=== PATIENT | male | born 1935 | race Caucasian/White ===

== ENCOUNTER → 2017-01-16 | Outpatient (CLI) | payer MEDICARE, OTHER ==
[~2017-01-16] MED LIST: AMLO5TAB2 PO; ATEN50TA41 PO; FERR325T20 PO; LISI40TA PO; OMEP-110 PO
== END | disposition home or self-care (01) ==
LOC: ROC 10:54
PROVIDERS: ATTEND Radiology Radiation Oncology
DX: C44.519 Basal cell carcinoma of skin of other part of trunk (principal); I10 Essential (primary) hypertension; N17.9 Acute kidney failure, unspecified; Z85.89 Personal history of malignant neoplasm of other organs and systems
CPT/HCPCS: 99212; G0463

== ENCOUNTER → 2017-07-14 | Outpatient (CLI) | payer MEDICARE, OTHER ==
[~2017-07-14] MED LIST changes: +FERR325T18 PO; -FERR325T20 PO
== END | disposition home or self-care (01) ==
LOC: ROC 12:21
PROVIDERS: ATTEND Radiology Radiation Oncology
DX: R59.9 Enlarged lymph nodes, unspecified (principal); D64.9 Anemia, unspecified; Z79.82 Long term (current) use of aspirin; Z92.3 Personal history of irradiation; Z85.820 Personal history of malignant melanoma of skin
CPT/HCPCS: G0463

== ENCOUNTER → 2017-07-20 | Outpatient (CLI) | payer MEDICARE, OTHER ==
[~2017-07-20] MED LIST changes: +LIDOCAINE 1%, 20ML ONE
== END | disposition home or self-care (01) ==
LOC: RAD 11:12
PROVIDERS: ATTEND Radiology Radiation Oncology
DX: C44.519 Basal cell carcinoma of skin of other part of trunk (principal); I10 Essential (primary) hypertension; Z85.820 Personal history of malignant melanoma of skin
CPT/HCPCS: 76604; 76881; 76942; 88305; J3490

== ENCOUNTER → 2017-07-26 | Outpatient (CLI) | payer MEDICARE, OTHER ==
[~2017-07-26] MED LIST changes: -LIDOCAINE 1%, 20ML ONE
== END | disposition home or self-care (01) ==
LOC: ROC 06:36
PROVIDERS: ATTEND Radiology Radiation Oncology
DX: C44.92 Squamous cell carcinoma of skin, unspecified (principal)
CPT/HCPCS: G0463

== ENCOUNTER → 2017-07-27 | Outpatient (CLI) | payer MEDICARE, OTHER | END | disposition home or self-care (01) | LOC: RAD 13:32 | PROVIDERS: ATTEND Radiology Radiation Oncology | DX: C79.31 Secondary malignant neoplasm of brain (principal); G93.6 Cerebral edema; I10 Essential (primary) hypertension; N28.9 Disorder of kidney and ureter, unspecified; C43.9 Malignant melanoma of skin, unspecified | CPT/HCPCS: 70553 ==

== ENCOUNTER → 2017-07-28 | Outpatient (CLI) | payer MEDICARE, OTHER | END | disposition home or self-care (01) | LOC: PETCFH 08:01 | PROVIDERS: ATTEND Radiology Radiation Oncology | DX: C79.31 Secondary malignant neoplasm of brain (principal); C43.9 Malignant melanoma of skin, unspecified; N28.1 Cyst of kidney, acquired; N28.9 Disorder of kidney and ureter, unspecified; K44.9 Diaphragmatic hernia without obstruction or gangrene; I10 Essential (primary) hypertension | CPT/HCPCS: 78816; A9552 ==

== ENCOUNTER 2017-10-21 19:24 | Inpatient (IN) | payer MEDICARE, OTHER ==
[~2017-10-21] VITALS: Ht 175.3 cm; Wt 69.1 kg
[2017-10-21] MEDS ORDERED: SODIUM CHLORIDE FLUSH 10ML SYR IVF ONE (19:30)
[2017-10-21] MEDS ORDERED: MORPHINE SULFATE 4 MG/ML, 1ML IVPush PRN (19:30)
[2017-10-21] MEDS ORDERED: ONDANSETRON 2MG/ML, 2ML IVPush ONE (19:30)
[2017-10-21] MEDS ORDERED: SODIUM CHLORIDE 0.9% 1,000ML IVBOLUS ONE (19:30)
[2017-10-21] MEDS ORDERED: SODIUM CHLORIDE 0.9% 1,000 ML IV ONE ×2 (19:30→21:20)
[2017-10-21 19:54] LABS: HEMATOCRIT 30.2 % (39.2-51.8); HEMOGLOBIN 9.9 g/dL (13.7-18.0); WHITE BLOOD COUNT 9.6 x10^3/uL (3.4-10)
[2017-10-21] MEDS ORDERED: PLEASE ENTER HEIGHT AND WEIGHT MC SCH (20:00)
[2017-10-21 20:07] LABS: BLOOD UREA NITROGEN 32 mg/dL (7-18)
[2017-10-21 20:11] LABS: ASPARTATE AMINO TRANSFERASE 12 U/L (15-37)
[2017-10-21] MEDS ORDERED: ENOXAPARIN 60 MG/0.6 ML SQ ONE (21:30)
[2017-10-21] MEDS ORDERED: SODIUM CHLORIDE FLUSH 10ML SYR IVF PRN (21:30)
[2017-10-21] MEDS ORDERED: ENOXAPARIN 60 MG/0.6 ML ONE (21:36)
[2017-10-21 22:53] VITALS: BP 105/69
[2017-10-21] MEDS ORDERED: OMNIPAQUE 350 MG/ML, 100ML BOTTLE ONE (23:09)
[2017-10-22] MEDS ORDERED: ACETAMINOPHEN 325 MG TABLET PO PRN (02:30)
[2017-10-22] MEDS ORDERED: ONDANSETRON ODT 4 MG PO PRN (02:30)
[2017-10-22] MEDS: SODIUM CHLORIDE 0.9% 1,000 ML IV SCH ×3 (03:13→19:43)
[2017-10-22 03:17] VITALS: BP 94/56
[2017-10-22] MEDS: ENOXAPARIN 60 MG/0.6 ML SQ SCH ×2 (06:24→18:39)
[2017-10-22 06:37] LABS: HEMATOCRIT 26.3 % (39.2-51.8); HEMOGLOBIN 8.6 g/dL (13.7-18.0); WHITE BLOOD COUNT 7.6 x10^3/uL (3.4-10)
[2017-10-22 07:47] VITALS: BP 104/60
[2017-10-22] MEDS: AMLODIPINE 5 MG TABLET PO SCH (09:00)
[2017-10-22] MEDS: LISINOPRIL 20 MG TABLET PO SCH (10:25)
[2017-10-22] MEDS: ATENOLOL 50 MG TABLET PO SCH (10:25)
[2017-10-22] MEDS: OMEPRAZOLE 20 MG CAPSULE.DR PO SCH (10:25)
[2017-10-22 11:20] LABS: BLOOD UREA NITROGEN 33 mg/dL (7-18)
[2017-10-22 14:59] VITALS: BP 109/68
[2017-10-22] MEDS ORDERED: GLYCERIN ADULT SUPP PR PRN (15:30)
[2017-10-22 19:04] VITALS: BP 105/66
[2017-10-22 19:06] LABS: OCCBLD OBC PASS
[2017-10-23] VITALS (11 sets, daily range): BP systolic 99–122; BP diastolic 51–74
[2017-10-23] MEDS: SODIUM CHLORIDE 0.9% 1,000 ML IV SCH ×3 (04:04→19:32)
[2017-10-23] MEDS: ENOXAPARIN 60 MG/0.6 ML SQ SCH ×2 (06:02→17:16)
[2017-10-23] MEDS: OMEPRAZOLE 20 MG CAPSULE.DR PO SCH (07:52)
[2017-10-23] MEDS: ATENOLOL 50 MG TABLET PO SCH (07:52)
[2017-10-23] MEDS: LISINOPRIL 20 MG TABLET PO SCH (07:52)
[2017-10-23] MEDS: AMLODIPINE 5 MG TABLET PO SCH (07:52)
[2017-10-23 13:27] LABS: HEMATOCRIT 28.2 % (39.2-51.8); HEMOGLOBIN 9.2 g/dL (13.7-18.0); WHITE BLOOD COUNT 8.3 x10^3/uL (3.4-10)
[2017-10-23] MEDS ORDERED: MORPHINE SULFATE 4 MG/ML, 1ML IVPush ONE (13:30)
[2017-10-23 13:46] LABS: FERRITIN 154.8 ng/mL (26-388)
[2017-10-24] MEDS: SODIUM CHLORIDE 0.9% 1,000 ML IV SCH (03:18)
[2017-10-24 03:59] VITALS: BP 126/79
[2017-10-24 05:38] LABS: HEMATOCRIT 25.4 % (39.2-51.8); HEMOGLOBIN 8.3 g/dL (13.7-18.0); WHITE BLOOD COUNT 7.4 x10^3/uL (3.4-10)
[2017-10-24 05:56] LABS: BLOOD UREA NITROGEN 38 mg/dL (7-18)
[2017-10-24] MEDS: ENOXAPARIN 60 MG/0.6 ML SQ SCH ×2 (06:01→16:57)
[2017-10-24 07:20] VITALS: BP 109/66
[2017-10-24] MEDS: D5%-0.45% NACL 1,000 ML IV SCH ×2 (08:29→21:17)
[2017-10-24] MEDS: ATENOLOL 50 MG TABLET PO SCH (09:00)
[2017-10-24] MEDS: AMLODIPINE 5 MG TABLET PO SCH (09:00)
[2017-10-24] MEDS: LISINOPRIL 20 MG TABLET PO SCH (09:00)
[2017-10-24] MEDS: OMEPRAZOLE 20 MG CAPSULE.DR PO SCH (09:00)
[2017-10-24] MEDS: ALBUMIN HUMAN 25% 50 ML IV SCH ×2 (13:24→21:17)
[2017-10-24 14:10] VITALS: BP 118/68
[2017-10-24 19:56] VITALS: BP 123/74
[2017-10-25] VITALS (10 sets, daily range): BP systolic 115–128; BP diastolic 68–86
[2017-10-25] MEDS: ALBUMIN HUMAN 25% 50 ML IV SCH (05:14)
[2017-10-25] MEDS: ENOXAPARIN 60 MG/0.6 ML SQ SCH ×2 (05:14→19:07)
[2017-10-25] MEDS: D5%-0.45% NACL 1,000 ML IV SCH (09:11)
[2017-10-25] MEDS: AMLODIPINE 5 MG TABLET PO SCH (09:33)
[2017-10-25] MEDS: LISINOPRIL 20 MG TABLET PO SCH (09:33)
[2017-10-25] MEDS: OMEPRAZOLE 20 MG CAPSULE.DR PO SCH (09:33)
[2017-10-25] MEDS: ATENOLOL 50 MG TABLET PO SCH (09:34)
[2017-10-25 10:03] LABS: WHITE BLOOD COUNT 6.7 x10^3/uL (3.4-10)
[2017-10-25 10:06] LABS: HEMATOCRIT 20.5 % (39.2-51.8); HEMOGLOBIN 6.9 g/dL (13.7-18.0)
[2017-10-25 10:07] LABS: BLOOD UREA NITROGEN 28 mg/dL (7-18)
[2017-10-25] MEDS ORDERED: ACETAMINOPHEN 325 MG TABLET PO ONE (10:30)
[2017-10-25] MEDS ORDERED: DIPHENHYDRAMINE 50 MG/ML, 1ML IVPush ONE (10:30)
[2017-10-25] MEDS ORDERED: POTASSIUM CHLORIDE 20 MEQ TAB.ER.PRT PO ONE (11:00)
[2017-10-25] MEDS ORDERED: ENOX60SY4 SQ (15:05)
[2017-10-25 19:35] LABS: HEMATOCRIT 30.5 % (39.2-51.8); HEMOGLOBIN 10.1 g/dL (13.7-18.0); WHITE BLOOD COUNT 9.4 x10^3/uL (3.4-10)
[2017-10-26] MEDS: D5%-0.45% NACL 1,000 ML IV SCH (00:51)
[2017-10-26 01:40] VITALS: BP 121/76
[2017-10-26] MEDS: ENOXAPARIN 60 MG/0.6 ML SQ SCH (06:18)
[2017-10-26] MEDS ORDERED: POTASSIUM CHLORIDE 20 MEQ TAB.ER.PRT PO ONE (07:00)
[2017-10-26 07:33] VITALS: BP 126/69
[2017-10-26] MEDS: AMLODIPINE 5 MG TABLET PO SCH (08:38)
[2017-10-26] MEDS: LISINOPRIL 20 MG TABLET PO SCH (08:38)
[2017-10-26] MEDS: OMEPRAZOLE 20 MG CAPSULE.DR PO SCH (08:38)
[2017-10-26] MEDS: ATENOLOL 50 MG TABLET PO SCH (08:38)
== END 2017-10-26 11:04 | disposition home or self-care (01) | DRG 388 ==
LOC: ED 21:20 → EDIP 21:21 → ED 21:28 → 4NOR 22:15 → 3NW 10-22 10:58
PROVIDERS: ADMIT Surgery; ATTEND Surgery
PROC: 30233N1 Transfusion of Nonautologous Red Blood Cells into Peripheral Vein, Percutaneous Approach (ICD-10-PCS; principal; 2017-10-25)
DX: K56.600 Partial intestinal obstruction, unspecified as to cause (principal); E43 Unspecified severe protein-calorie malnutrition; I26.99 Other pulmonary embolism without acute cor pulmonale; N17.9 Acute kidney failure, unspecified; J18.9 Pneumonia, unspecified organism; E86.0 Dehydration; E88.09 Other disorders of plasma-protein metabolism, not elsewhere classified; I13.10 Hypertensive heart and chronic kidney disease without heart failure, with stage 1 through stage 4 chronic kidney disease, or unspecified chronic kidney disease; E83.51 Hypocalcemia; I35.8 Other nonrheumatic aortic valve disorders; D50.9 Iron deficiency anemia, unspecified; E87.6 Hypokalemia; I44.7 Left bundle-branch block, unspecified; K76.0 Fatty (change of) liver, not elsewhere classified; N18.3 Chronic kidney disease, stage 3 (moderate); Z53.20 Procedure and treatment not carried out because of patient's decision for unspecified reasons; Z92.3 Personal history of irradiation; Z85.820 Personal history of malignant melanoma of skin; Z68.22 Body mass index [BMI] 22.0-22.9, adult
CPT/HCPCS: 36415; 71010; 71275; 74000; 74177; 74245; 80048; 80053; 81003; 82272; 82728; 83540; 83550; 83605; 83690; 84466; 85025; 85610; 86850; 86900; 86923; 93005; 93306; 93970; J1650; P9047; Q9967; J1200; J7030; P9016

== ENCOUNTER 2017-11-01 13:37 | Inpatient (IN) | payer MEDICARE, OTHER ==
[~2017-11-01] VITALS: Ht 175.3 cm; Wt 77.7 kg
[~2017-11-01 13:37] MED LIST changes: +ENOX60SY4 SQ
[2017-11-01] MEDS ORDERED: SODIUM CHLORIDE FLUSH 10ML SYR IVF ONE (14:00)
[2017-11-01] MEDS ORDERED: SODIUM CHLORIDE 0.9% 1,000ML IVBOLUS ONE ×4 (14:00→21:30)
[2017-11-01] MEDS ORDERED: DEXTROSE 50%, 50ML SYRINGE IVPush ONE ×3 (14:00→21:30)
[2017-11-01] MEDS ORDERED: DEXTROSE 50%, 50ML SYRINGE ONE (14:11)
[2017-11-01] MEDS ORDERED: PIPERACILLIN/TAZO/PMX 3.375GM 50 ML IV ONE (14:30)
[2017-11-01 14:34] LABS: INTERNATIONAL NORMALIZED RATIO 1.43 (0.93-1.1); PROTHROMBIN TIME 14.6 Seconds (9.6-11.5)
[2017-11-01] MEDS ORDERED: PIPERACILLIN/TAZO/PMX 3.375GM 50 ML ONE (14:34)
[2017-11-01 14:37] LABS: ALANINE AMINOTRANSFERASE 35 U/L (12-78); ALBUMIN 1.1 g/dL (3.4-5.0); ANION GAP 14 mmol/L (5-15); CALCIUM 6.5 mg/dL (8.5-10.1); CHLORIDE 118 mmol/L (98-107); CREATININE 2.95 mg/dL (0.7-1.3)
[2017-11-01 14:39] LABS: ALKALINE PHOSPHATASE 72 U/L (45-117); BILIRUBIN,TOTAL 0.4 mg/dL (0.2-1.0)
[2017-11-01 14:48] LABS: TROPONIN I 0.025 ng/mL (0.000-0.045)
[2017-11-01 15:05] LABS: MEAN CORPUSCULAR HEMOGLOBIN 27.4 pg (27.5-34.5); MEAN CORPUSCULAR HGB CONC 32.7 g/dL (33.2-36.2); MEAN CORPUSCULAR VOLUME 83.9 fL (81-97); MEAN PLATELET VOLUME 10.2 fL (7.4-10.4); PLATELET COUNT 75 x10^3/uL (130-400); RED BLOOD COUNT 3.77 x10^6/uL (4.38-5.82); RED CELL DISTRIBUTION WIDTH 18.4 % (9.4-14.8)
[2017-11-01 15:09] LABS: MD YES
[2017-11-01 15:11] LABS: BAND#(MANUAL) 0.75 x10^3/uL; BANDS%(MANUAL) 44 % (0-7); LYMPH#(MANUAL) 0.14 x10^3/uL (1-3.4); LYMPHS% (MANUAL) 8 % (22-44); METAMYELOCYTES# (MANUAL) 0.34 x10^3/uL (0-0); METAMYELOCYTES% (MANUAL) 20 % (0-1); MONOS#(MANUAL) 0.07 x10^3/uL (0.3-2.7); MONOS% (MANUAL) 4 % (2-9); SEG#(MANUAL) 0.41 x10^3/uL (1.8-6.8); SEGS% (MANUAL) 24 % (42-75)
[2017-11-01 15:12] LABS: ACANTHOCYTES 2+; ANISOCYTOSIS 1+; MICROCYTOSIS 1+; OVALOCYTES 1+; SCHISTOCYTES 1+; SPHEROCYTES 1+
[2017-11-01 15:15] LABS: <PLATELET ESTIMATE> DECREASED; LARGE PLATELETS 1+; TEAR DROPS 1+
[2017-11-01] MEDS ORDERED: PIPERACILLIN/TAZO/PMX 3.375GM 50 ML IV SCH (16:30)
[2017-11-01] MEDS ORDERED: BISACODYL 10 MG SUPP PR PRN (16:30)
[2017-11-01] MEDS ORDERED: VANCOMYCIN PER PHARMACY MC PRN (16:30)
[2017-11-01 16:33] LABS: RAPID INFLUENZA A POSITIVE (Negative)
[2017-11-01 16:34] LABS: RAPID INFLUENZA B Negative (Negative)
[2017-11-01] MEDS ORDERED: VANCOMYCIN 1,400 MG in SODIUM CHLORIDE 0.9% 250 ML IV ONE (17:00)
[2017-11-01] MEDS ORDERED: PHARMACOKINETIC MONITORING MC PRN (17:00)
[2017-11-01] MEDS: D5%-0.45NACL+KCL 20MEQ 1,000 ML IV SCH (17:05)
[2017-11-01] MEDS ORDERED: HEPARIN 5,000 UNITS/ML, 1ML IV ONE (19:00)
[2017-11-01] MEDS: NOREPINEPHRINE 4 MG in SODIUM CHLORIDE 0.9% 246 ML IV PRN ×2 (19:00→22:16)
[2017-11-01] MEDS ORDERED: HEPARIN 25,000 UNITS/500ML PMX 500 ML IV PRN (19:00)
[2017-11-01] MEDS ORDERED: HEPARIN 5,000 UNITS/ML, 1ML IV PRN (19:00)
[2017-11-01 19:17] LABS: O2 FLOW 2 L/min
[2017-11-01 19:18] LABS: CULTURE INDICATED? YES; MICROSCOPIC INDICATED
[2017-11-01] MEDS ORDERED: LIDOCAINE-MPF 1%, 2ML ENDO PRN (20:00)
[2017-11-01] MEDS: VASOPRESSIN 100 UNIT in SODIUM CHLORIDE 0.9% 495 ML IV PRN (20:30)
[2017-11-01] MEDS: HYDROCORTISONE 100 MG INJ. IVPush SCH (22:11)
[2017-11-01] MEDS: PIPERACILLIN/TAZO/PMX 3.375GM 50 ML IV SCH (22:12)
[2017-11-01] MEDS: OSELTAMIVIR 6 MG/ML ORAL SUSP PO SCH (22:12)
[2017-11-02] MEDS: NOREPINEPHRINE 4 MG in SODIUM CHLORIDE 0.9% 246 ML IV PRN (00:56)
[2017-11-02 04:00] VITALS: BP 111/47
[2017-11-02] MEDS: PROPOFOL 100 ML IV PRN ×2 (04:47→20:23)
[2017-11-02] MEDS: D5%-0.45NACL+KCL 20MEQ 1,000 ML IV SCH (04:48)
[2017-11-02] MEDS: HYDROCORTISONE 100 MG INJ. IVPush SCH ×3 (04:50→20:22)
[2017-11-02] MEDS: PIPERACILLIN/TAZO/PMX 3.375GM 50 ML IV SCH ×4 (04:50→23:10)
[2017-11-02 05:23] LABS: ALANINE AMINOTRANSFERASE 31 U/L (12-78); ALBUMIN 0.9 g/dL (3.4-5.0); ANION GAP 13 mmol/L (5-15); CHLORIDE 122 mmol/L (98-107)
[2017-11-02 05:26] LABS: ALKALINE PHOSPHATASE 55 U/L (45-117); BILIRUBIN,TOTAL 0.5 mg/dL (0.2-1.0); TOTAL PROTEIN 3.4 g/dL (6.4-8.2)
[2017-11-02 05:37] LABS: CALCIUM 5.9 mg/dL (8.5-10.1)
[2017-11-02 05:47] LABS: MD YES; MEAN CORPUSCULAR HEMOGLOBIN 27.6 pg (27.5-34.5); MEAN CORPUSCULAR VOLUME 83.6 fL (81-97); RED BLOOD COUNT 3.41 x10^6/uL (4.38-5.82); RED CELL DISTRIBUTION WIDTH 19.1 % (9.4-14.8)
[2017-11-02 05:49] LABS: BAND#(MANUAL) 1.04 x10^3/uL; BANDS%(MANUAL) 36 % (0-7); LYMPH#(MANUAL) 0.12 x10^3/uL (1-3.4); LYMPHS% (MANUAL) 4 % (22-44); METAMYELOCYTES# (MANUAL) 0.06 x10^3/uL (0-0); METAMYELOCYTES% (MANUAL) 2 % (0-1); MONOS#(MANUAL) 0.12 x10^3/uL (0.3-2.7); MONOS% (MANUAL) 4 % (2-9); SEG#(MANUAL) 1.57 x10^3/uL (1.8-6.8); SEGS% (MANUAL) 54 % (42-75)
[2017-11-02 05:52] LABS: ACANTHOCYTES 2+; ANISOCYTOSIS 1+
[2017-11-02 05:53] LABS: SCHISTOCYTES 1+; SPHEROCYTES 1+; TEAR DROPS 1+
[2017-11-02 05:55] LABS: <PLATELET ESTIMATE> DECREASED; LARGE PLATELETS 1+; MEAN PLATELET VOLUME 10.5 fL (7.4-10.4)
[2017-11-02 05:56] LABS: PLATELET COUNT 35 x10^3/uL (130-400)
[2017-11-02] MEDS ORDERED: CALCIUM GLUCONATE 4.6 MEQ/10 ML IVPush ONE (06:00)
[2017-11-02] MEDS ORDERED: MIDAZOLAM 1 MG/ML, 5ML ONE (08:00)
[2017-11-02] MEDS ORDERED: VECURONIUM 10 MG ONE (08:00)
[2017-11-02] MEDS ORDERED: MAGNESIUM SULFATE PMX 4GM/100M 100 ML IV ONE (08:00)
[2017-11-02] MEDS: FAMOTIDINE 20 MG/2 ML IVPush SCH (08:48)
[2017-11-02] MEDS: OSELTAMIVIR 6 MG/ML ORAL SUSP PO SCH ×2 (08:48→20:23)
[2017-11-02] MEDS: NOREPINEPHRINE 8 MG in SODIUM CHLORIDE 0.9% 242 ML IV PRN ×3 (09:31→20:23)
[2017-11-02] MEDS: SODIUM BICARBONATE 8.4% 100 MEQ in DEXTROSE 5% 1,000 ML IV SCH (10:24)
[2017-11-02] MEDS ORDERED: CALCIUM CHLORIDE 13.6 MEQ in SODIUM CHLORIDE 0.9% 100 ML IV ONE (11:00)
[2017-11-02] MEDS ORDERED: PHENYLEPHRINE 20 MG in SODIUM CHLORIDE 0.9% 248 ML IV PRN (13:00)
[2017-11-02] MEDS ORDERED: CALCIUM GLUCONATE 9.2 MEQ in SODIUM CHLORIDE 0.9% 100 ML IV ONE (14:30)
[2017-11-03] VITALS (10 sets, daily range): BP systolic 102–142; BP diastolic 38–53
[2017-11-03] MEDS: SODIUM BICARBONATE 8.4% 100 MEQ in DEXTROSE 5% 1,000 ML IV SCH (00:04)
[2017-11-03] MEDS: HYDROCORTISONE 100 MG INJ. IVPush SCH ×3 (04:34→21:01)
[2017-11-03] MEDS: PIPERACILLIN/TAZO/PMX 3.375GM 50 ML IV SCH ×4 (04:34→22:59)
[2017-11-03 06:19] LABS: MEAN CORPUSCULAR HEMOGLOBIN 27.4 pg (27.5-34.5); MEAN CORPUSCULAR HGB CONC 33.1 g/dL (33.2-36.2); MEAN CORPUSCULAR VOLUME 82.9 fL (81-97); RED BLOOD COUNT 2.71 x10^6/uL (4.38-5.82); RED CELL DISTRIBUTION WIDTH 19.1 % (9.4-14.8)
[2017-11-03 06:21] LABS: MD YES; MEAN PLATELET VOLUME 10.9 fL (7.4-10.4); PLATELET COUNT 10 x10^3/uL (130-400)
[2017-11-03 06:26] LABS: BAND#(MANUAL) 2.12 x10^3/uL; BANDS%(MANUAL) 20 % (0-7); LYMPH#(MANUAL) 0.21 x10^3/uL (1-3.4); LYMPHS% (MANUAL) 2 % (22-44); METAMYELOCYTES# (MANUAL) 0.21 x10^3/uL (0-0); METAMYELOCYTES% (MANUAL) 2 % (0-1); MONOS#(MANUAL) 0.21 x10^3/uL (0.3-2.7); MONOS% (MANUAL) 2 % (2-9); NRBC % (MANUAL) 1 % (0-1); REACTIVE LYMPHS # (MANUAL) 0.21 x10^3/uL (0-0); REACTIVE LYMPHS % (MANUAL) 2 % (0-0); SEG#(MANUAL) 7.63 x10^3/uL (1.8-6.8); SEGS% (MANUAL) 72 % (42-75)
[2017-11-03 06:27] LABS: ANISOCYTOSIS 1+; SCHISTOCYTES 1+
[2017-11-03 06:28] LABS: OVALOCYTES 1+
[2017-11-03 06:29] LABS: <PLATELET ESTIMATE> DECREASED; <PLT MORPHOLOGY> NORMAL PLT MORPH; CRENATED 2+; TOXIC GRAN 1+
[2017-11-03] MEDS ORDERED: VANCOMYCIN 1,400 MG in SODIUM CHLORIDE 0.9% 250 ML IV ONE (06:30)
[2017-11-03] MEDS: NOREPINEPHRINE 8 MG in SODIUM CHLORIDE 0.9% 242 ML IV PRN ×2 (06:41→16:11)
[2017-11-03] MEDS: OSELTAMIVIR 6 MG/ML ORAL SUSP PO SCH ×2 (09:04→21:01)
[2017-11-03] MEDS: FAMOTIDINE 20 MG/2 ML IVPush SCH (09:04)
[2017-11-03 09:56] LABS: ANION GAP 16 mmol/L (5-15); CALCIUM 6.4 mg/dL (8.5-10.1); CHLORIDE 116 mmol/L (98-107); CREATININE 2.74 mg/dL (0.7-1.3)
[2017-11-03] MEDS: FENTANYL PF 100 MCG/2ML IVPush PRN ×2 (09:56→13:01)
[2017-11-03 10:11] LABS: INTERNATIONAL NORMALIZED RATIO 1.11 (0.93-1.1); PROTHROMBIN TIME 11.4 Seconds (9.6-11.5)
[2017-11-03] MEDS ORDERED: CALCIUM GLUCONATE 4.6 MEQ in SODIUM CHLORIDE 0.9% 50 ML IV ONE (10:30)
[2017-11-03 11:15] LABS: HIT RESULT NEGATIVE (NEGATIVE)
[2017-11-03] MEDS ORDERED: FILTER, DISP 1.2 MICRON FOR TPN/PVN IV PRN (12:00)
[2017-11-03] MEDS: PROPOFOL 100 ML IV PRN (13:44)
[2017-11-03] MEDS: VASOPRESSIN 100 UNIT in SODIUM CHLORIDE 0.9% 495 ML IV PRN (16:11)
[2017-11-03] MEDS ORDERED: AMINO ACID 10% IV SCH (17:00)
[2017-11-03] MEDS ORDERED: DEXTROSE 70% IV SCH (17:00)
[2017-11-03] MEDS ORDERED: FAT EMULSIONS IV SCH (17:00)
[2017-11-03] MEDS ORDERED: DEXTROSE 50%, 50ML SYRINGE IVPush PRN (17:00)
[2017-11-03] MEDS ORDERED: DEXTROSE 10% 500 ML IV PRN (17:00)
[2017-11-03] MEDS ORDERED: TPN PER PHARMACY MC PRN (17:00)
[2017-11-03] MEDS ORDERED: [UNRECOGNIZED DRUG - OTHER] IV SCH (17:00)
[2017-11-03 19:10] LABS: MEAN CORPUSCULAR HEMOGLOBIN 27.9 pg (27.5-34.5); MEAN CORPUSCULAR HGB CONC 33.8 g/dL (33.2-36.2); MEAN CORPUSCULAR VOLUME 82.6 fL (81-97); MEAN PLATELET VOLUME 10.8 fL (7.4-10.4); RED BLOOD COUNT 2.48 x10^6/uL (4.38-5.82); RED CELL DISTRIBUTION WIDTH 18.7 % (9.4-14.8)
[2017-11-03 19:14] LABS: PLATELET COUNT 13 x10^3/uL (130-400)
[2017-11-03 19:34] LABS: MD YES
[2017-11-03 19:37] LABS: ANISOCYTOSIS 1+; BAND#(MANUAL) 3.65 x10^3/uL; BANDS%(MANUAL) 38 % (0-7); LYMPHS% (MANUAL) 1 % (22-44); METAMYELOCYTES# (MANUAL) 0.19 x10^3/uL (0-0); METAMYELOCYTES% (MANUAL) 2 % (0-1); SEG#(MANUAL) 5.66 x10^3/uL (1.8-6.8); SEGS% (MANUAL) 59 % (42-75)
[2017-11-03 19:38] LABS: HYPOCHROMIA 1+; OVALOCYTES 1+
[2017-11-03 19:39] LABS: CRENATED 1+; SCHISTOCYTES 1+; TARGET CELLS 1+; TOXIC GRAN 1+
[2017-11-03 19:40] LABS: <PLATELET ESTIMATE> DECREASED; LARGE PLATELETS 1+
[2017-11-03] MEDS: INSULIN REGULAR LOW DOSE Q6H X 48HRS SQ-INSULIN SCH (21:10)
[2017-11-04] VITALS: BP 113/41
[2017-11-04 01:39] VITALS: BP 123/46
[2017-11-04 02:35] VITALS: BP 124/47
[2017-11-04 02:51] VITALS: BP 131/53
[2017-11-04 04:13] VITALS: BP 117/51
[2017-11-04] MEDS: HYDROCORTISONE 100 MG INJ. IVPush SCH ×3 (04:40→21:35)
[2017-11-04] MEDS: PIPERACILLIN/TAZO/PMX 3.375GM 50 ML IV SCH ×4 (04:40→23:03)
[2017-11-04] MEDS: INSULIN REGULAR LOW DOSE Q6H X 48HRS SQ-INSULIN SCH ×4 (04:47→21:35)
[2017-11-04 05:00] LABS: MEAN CORPUSCULAR HGB CONC 34.9 g/dL (33.2-36.2); MEAN CORPUSCULAR VOLUME 83.1 fL (81-97); MEAN PLATELET VOLUME 8.1 fL (7.4-10.4); PLATELET COUNT 60 x10^3/uL (130-400); RED BLOOD COUNT 3.15 x10^6/uL (4.38-5.82); RED CELL DISTRIBUTION WIDTH 17.1 % (9.4-14.8)
[2017-11-04 05:12] LABS: CHLORIDE 116 mmol/L (98-107)
[2017-11-04 05:25] LABS: ALANINE AMINOTRANSFERASE 21 U/L (12-78); ALBUMIN 0.9 g/dL (3.4-5.0); ALKALINE PHOSPHATASE 49 U/L (45-117); ANION GAP 15 mmol/L (5-15); CALCIUM 6.9 mg/dL (8.5-10.1); CREATININE 2.69 mg/dL (0.7-1.3); PREALBUMIN 3.2 mg/dL (20.0-40.0); TOTAL PROTEIN 3.6 g/dL (6.4-8.2); TRIGLYCERIDES 286 mg/dL (50-200)
[2017-11-04 05:55] LABS: MD YES
[2017-11-04 06:01] LABS: ANISOCYTOSIS 1+; BAND#(MANUAL) 0.51 x10^3/uL; BANDS%(MANUAL) 7 % (0-7); LYMPH#(MANUAL) 0.37 x10^3/uL (1-3.4); LYMPHS% (MANUAL) 5 % (22-44); MONOS#(MANUAL) 0.37 x10^3/uL (0.3-2.7); MONOS% (MANUAL) 5 % (2-9); OVALOCYTES 1+; SEG#(MANUAL) 6.06 x10^3/uL (1.8-6.8); SEGS% (MANUAL) 83 % (42-75)
[2017-11-04 06:03] LABS: <PLATELET ESTIMATE> DECREASED; PMNS WITH VACUOLES 1+; POLYCHROMASIA 1+; TOXIC GRAN 1+
[2017-11-04 06:05] LABS: SCHISTOCYTES 1+
[2017-11-04 06:06] LABS: ECHINOCYTES 1+
[2017-11-04 06:09] LABS: TARGET CELLS 1+
[2017-11-04 06:11] LABS: <PLT MORPHOLOGY> NORMAL PLT MORPH
[2017-11-04] MEDS: OSELTAMIVIR 6 MG/ML ORAL SUSP PO SCH ×2 (09:07→21:35)
[2017-11-04] MEDS ORDERED: POTASSIUM CHLORIDE PMX 100 ML IV ONE ×3 (09:30→22:00)
[2017-11-04] MEDS: PROPOFOL 100 ML IV PRN ×2 (09:34→23:03)
[2017-11-04] MEDS: FENTANYL PF 100 MCG/2ML IVPush PRN ×2 (09:37→12:18)
[2017-11-04] MEDS ORDERED: FENTANYL PF 2,500 MCG in SODIUM CHLORIDE 0.9% 200 ML IV PRN (12:30)
[2017-11-04] MEDS: NOREPINEPHRINE 8 MG in SODIUM CHLORIDE 0.9% 242 ML IV PRN (15:26)
[2017-11-04] MEDS ORDERED: SODIUM CHLORIDE 0.9%, 500ML IVBOLUS ONE (15:30)
[2017-11-04] MEDS: KSCALE TO 4.0 IV SCH ×2 (15:45→21:47)
[2017-11-04] MEDS ORDERED: [UNRECOGNIZED DRUG - OTHER] IV SCH (17:00)
[2017-11-04] MEDS ORDERED: AMINO ACID 10% IV SCH (17:00)
[2017-11-04] MEDS ORDERED: DEXTROSE 70% IV SCH (17:00)
[2017-11-04] MEDS ORDERED: FAT EMULSIONS IV SCH (17:00)
[2017-11-04] MEDS ORDERED: VASOPRESSIN 100 UNIT in SODIUM CHLORIDE 0.9% 495 ML IV PRN (19:45)
[2017-11-05] MEDS ORDERED: NOREPINEPHRINE 8 MG in SODIUM CHLORIDE 0.9% 242 ML IV PRN (03:00)
[2017-11-05] MEDS: INSULIN REGULAR LOW DOSE Q6H X 48HRS SQ-INSULIN SCH ×3 (03:00→15:48)
[2017-11-05 03:29] LABS: ANION GAP 11 mmol/L (5-15); CALCIUM 7.2 mg/dL (8.5-10.1); CHLORIDE 116 mmol/L (98-107); CREATININE 2.69 mg/dL (0.7-1.3)
[2017-11-05 03:31] LABS: VANCOMYCIN,RANDOM 16.5 mcg/mL
[2017-11-05 03:35] LABS: MEAN CORPUSCULAR HEMOGLOBIN 28.3 pg (27.5-34.5); MEAN CORPUSCULAR HGB CONC 33.8 g/dL (33.2-36.2); MEAN CORPUSCULAR VOLUME 83.8 fL (81-97); MEAN PLATELET VOLUME 10.2 fL (7.4-10.4); RED BLOOD COUNT 3.19 x10^6/uL (4.38-5.82); RED CELL DISTRIBUTION WIDTH 17.5 % (9.4-14.8)
[2017-11-05 03:37] LABS: MD YES; PLATELET COUNT 10 x10^3/uL (130-400)
[2017-11-05 03:40] LABS: BAND#(MANUAL) 0.41 x10^3/uL; BANDS%(MANUAL) 8 % (0-7); LYMPH#(MANUAL) 0.15 x10^3/uL (1-3.4); LYMPHS% (MANUAL) 3 % (22-44); METAMYELOCYTES# (MANUAL) 0.15 x10^3/uL (0-0); METAMYELOCYTES% (MANUAL) 3 % (0-1); NRBC % (MANUAL) 1 % (0-1); SEG#(MANUAL) 4.39 x10^3/uL (1.8-6.8); SEGS% (MANUAL) 86 % (42-75)
[2017-11-05 03:41] LABS: ANISOCYTOSIS 1+; ECHINOCYTES 1+; OVALOCYTES 1+; POLYCHROMASIA 1+; SCHISTOCYTES 1+
[2017-11-05 03:42] LABS: <PLATELET ESTIMATE> DECREASED; <PLT MORPHOLOGY> QNS FOR PLT MORPH; PMNS WITH VACUOLES 1+; TOXIC GRAN 1+
[2017-11-05] MEDS: KSCALE TO 4.0 IV SCH ×2 (03:58→10:00)
[2017-11-05] MEDS ORDERED: POTASSIUM CHLORIDE PMX 100 ML IV ONE (04:00)
[2017-11-05] MEDS: HYDROCORTISONE 100 MG INJ. IVPush SCH ×2 (04:45→11:28)
[2017-11-05] MEDS: PIPERACILLIN/TAZO/PMX 3.375GM 50 ML IV SCH ×2 (04:47→11:28)
[2017-11-05 04:57] VITALS: BP 113/49
[2017-11-05 05:11] VITALS: BP 113/49
[2017-11-05 05:26] VITALS: BP 122/62
[2017-11-05 06:00] VITALS: BP_SYST 117; BP_SYST 133; BP_DIAS 45; BP_DIAS 49
[2017-11-05] MEDS: PROPOFOL 100 ML IV PRN (07:21)
[2017-11-05] MEDS ORDERED: CALCIUM CHLORIDE 13.6 MEQ in SODIUM CHLORIDE 0.9% 100 ML IV ONE (09:00)
[2017-11-05] MEDS: OSELTAMIVIR 6 MG/ML ORAL SUSP PO SCH (09:18)
[2017-11-05 09:58] LABS: ANION GAP 9 mmol/L (5-15); CALCIUM 7.2 mg/dL (8.5-10.1); CHLORIDE 116 mmol/L (98-107); CREATININE 2.75 mg/dL (0.7-1.3)
[2017-11-05] MEDS ORDERED: PHENYLEPHRINE 20 MG in SODIUM CHLORIDE 0.9% 248 ML IV PRN (13:00)
[2017-11-05] MEDS ORDERED: LORazepam 2 MG/ML, 1ML IV ONE (15:30)
[2017-11-05] MEDS ORDERED: morphine SULFATE 10 MG/ML, 1ML IV PRN (15:30)
[2017-11-05] MEDS ORDERED: LORazepam 2 MG/ML, 1ML IV PRN (15:30)
[2017-11-05] MEDS ORDERED: ATROPINE OPHTH SOLN 1%, 2ML PO PRN (15:30)
[2017-11-05] MEDS ORDERED: morphine SULFATE 10 MG/ML, 1ML IV ONE (15:30)
[2017-11-05] MEDS ORDERED: FAT EMULSIONS IV SCH (17:00)
[2017-11-05] MEDS ORDERED: AMINO ACID 10% IV SCH (17:00)
[2017-11-05] MEDS ORDERED: DEXTROSE 70% IV SCH (17:00)
[2017-11-05] MEDS ORDERED: [UNRECOGNIZED DRUG - OTHER] IV SCH (17:00)
[2017-11-06] MEDS ORDERED: INSULIN REGULAR LOW DOSE QDAY SQ-INSULIN SCH (09:00)
== END 2017-11-05 16:03 | disposition expired | DRG 870 ==
LOC: ED 14:36 → EDIP 15:37 → ICU 18:51 → CCU 11-04 20:11 → 3NW 11-05 15:35
PROVIDERS: ADMIT Hospitalist; ATTEND Hospitalist
PROC: 0T9B70Z Drainage of Bladder with Drainage Device, Via Natural or Artificial Opening (ICD-10-PCS; 2017-11-01)
PROC: 03HY32Z Insertion of Monitoring Device into Upper Artery, Percutaneous Approach (ICD-10-PCS; 2017-11-01)
PROC: 4A133B1 Monitoring of Arterial Pressure, Peripheral, Percutaneous Approach (ICD-10-PCS; 2017-11-01)
PROC: 4A133J1 Monitoring of Arterial Pulse, Peripheral, Percutaneous Approach (ICD-10-PCS; 2017-11-01)
PROC: 5A1955Z Respiratory Ventilation, Greater than 96 Consecutive Hours (ICD-10-PCS; principal; 2017-11-02)
PROC: 0BH17EZ Insertion of Endotracheal Airway into Trachea, Via Natural or Artificial Opening (ICD-10-PCS; 2017-11-02)
PROC: 30233R1 Transfusion of Nonautologous Platelets into Peripheral Vein, Percutaneous Approach (ICD-10-PCS; 2017-11-03)
PROC: 30233N1 Transfusion of Nonautologous Red Blood Cells into Peripheral Vein, Percutaneous Approach (ICD-10-PCS; 2017-11-03)
PROC: 02HV33Z Insertion of Infusion Device into Superior Vena Cava, Percutaneous Approach (ICD-10-PCS; 2017-11-03)
PROC: B548ZZA Ultrasonography of Superior Vena Cava, Guidance (ICD-10-PCS; 2017-11-03)
DX: A41.9 Sepsis, unspecified organism (principal); I26.99 Other pulmonary embolism without acute cor pulmonale; J96.01 Acute respiratory failure with hypoxia; E43 Unspecified severe protein-calorie malnutrition; J10.08 Influenza due to other identified influenza virus with other specified pneumonia; N17.0 Acute kidney failure with tubular necrosis; R65.21 Severe sepsis with septic shock; G93.40 Encephalopathy, unspecified; D69.6 Thrombocytopenia, unspecified; Z99.11 Dependence on respirator [ventilator] status; E27.40 Unspecified adrenocortical insufficiency; I27.20 Pulmonary hypertension, unspecified; D64.9 Anemia, unspecified; E86.0 Dehydration; E16.2 Hypoglycemia, unspecified; K59.00 Constipation, unspecified; R55 Syncope and collapse; C43.9 Malignant melanoma of skin, unspecified; E87.6 Hypokalemia; I12.9 Hypertensive chronic kidney disease with stage 1 through stage 4 chronic kidney disease, or unspecified chronic kidney disease; I44.7 Left bundle-branch block, unspecified; N18.9 Chronic kidney disease, unspecified; Z51.5 Encounter for palliative care; Z66 Do not resuscitate; Z85.820 Personal history of malignant melanoma of skin; Z86.711 Personal history of pulmonary embolism; Z92.3 Personal history of irradiation; Z68.25 Body mass index [BMI] 25.0-25.9, adult
CPT/HCPCS: 36415; 36569; 36600; 51702; 71010; 74020; 76937; 77001; 80048; 80053; 80202; 81001; 82330; 82533; 82803; 82947; 82962; 83605; 83735; 84100; 84132; 84134; 84145; 84478; 84484; 85014; 85018; 85025; 85610; 85730; 86022; 86850; 86900; 86923; 87040; 87070; 87077; 87081; 87086; 87186; 87205; 87400; 93005; 93308; 93321; 93325; 94002; 94003; 96365; 96375; 96376; J0610; J1815; J2250; J2543; J2704; J3010; J3370; J3480; J7070; C1751; J1720; J3420; J3475; J7030; J7040; J7050; P9016; P9035; S0028